=== PATIENT | female | born 1945 | race Caucasian/White ===

== ENCOUNTER 2017-03-31 09:52 | Emergency (ER) | payer MEDICARE, OTHER ==
[~2017-03-31] VITALS: Ht 154.9 cm; Wt 88.6 kg
[~2017-03-31 09:52] MED LIST: CALCIUM + D 5001 TAB PO; CARDI-OMEGA1000 MG PO; NO HOME MEDICATIONS; OXYCODONE5 M1 PO
[2017-03-31] MEDS ORDERED: DITROPAN XL10 M1 PO (10:10)
[2017-03-31 11:08] LABS: EOS # 0.1 (0.04-0.40); EOS % 2.9 % (1.0-5.0); HEMATOCRIT 37.7 % (37.0-47.0); HEMOGLOBIN 11.8 g/dL (12.5-16.0); MEAN CELL VOLUME 95 fl (78-100); MEAN CORPUSCULAR HEMOGLOBIN 30 pg (27-31); MEAN CORPUSCULAR HGB CONC 31 g/dL (33-37); MEAN PLATELET VOLUME 11.1 fl (7.4-10.4); MONO # 0.5 (0.20-0.80); NEU # 3.2 (1.40-6.50); PLATELET COUNT 185 K/mm3 (130-400); RED BLOOD COUNT 3.96 M/mm3 (4.10-5.30); RED CELL DISTRIBUTION WIDTH 14.6 % (11.5-14.5); WHITE BLOOD COUNT 4.8 K/mm3 (4.8-10.8)
[2017-03-31 11:17] LABS: BUN/CREATININE RATIO 18.7 (6.0-26.0); CALCIUM 8.5 mg/dL (8.4-10.2); POTASSIUM 3.9 mmol/L (3.6-5.0)
[2017-03-31] MEDS ORDERED: TESSALON PERLE100 M1 PO (11:53)
[2017-03-31 12:29] VITALS: BP 150/73
== END 2017-03-31 12:15 | disposition home or self-care (01) ==
LOC: ED 09:52
PROVIDERS: Family Medicine
DX: J10.1 Influenza due to other identified influenza virus with other respiratory manifestations (principal); N39.41 Urge incontinence

== ENCOUNTER → 2017-11-28 | Outpatient (CLI) | payer MEDICARE, OTHER ==
[~2017-11-28] MED LIST changes: +DITROPAN XL10 M1 PO; +TESSALON PERLE100 M1 PO
== END ==
LOC: RAD 09:05 → MAMMO 10:00
DX: M85.80 Other specified disorders of bone density and structure, unspecified site (principal); Z78.0 Asymptomatic menopausal state

== ENCOUNTER → 2017-11-28 | Outpatient (CLI) | payer MEDICARE, OTHER | LOC: MAMMO 09:03 | DX: Z12.31 Encounter for screening mammogram for malignant neoplasm of breast (principal) ==

== ENCOUNTER → 2018-11-11 | Day surgery (SDC) | payer MEDICARE | LOC: MSO 08:41 | DX: R19.7 Diarrhea, unspecified (principal); K59.00 Constipation, unspecified; K21.9 Gastro-esophageal reflux disease without esophagitis; E78.5 Hyperlipidemia, unspecified; N32.81 Overactive bladder; Z79.899 Other long term (current) drug therapy; Z88.0 Allergy status to penicillin | CPT/HCPCS: 00812; J2704; J7120 ==

== ENCOUNTER → 2020-02-10 | Outpatient (CLI) | payer MEDICARE | LOC: RAD 10:55 → MAMMO 11:30 | DX: Z13.820 Encounter for screening for osteoporosis (principal); M85.80 Other specified disorders of bone density and structure, unspecified site ==

== ENCOUNTER → 2020-02-10 | Outpatient (CLI) | payer MEDICARE | LOC: MAMMO 10:45 | DX: Z12.31 Encounter for screening mammogram for malignant neoplasm of breast (principal) ==

== ENCOUNTER 2020-10-07 10:18 | Emergency (ER) | payer MEDICARE ==
[2020-10-07] MEDS ORDERED: ATORVASTATIN CA10 MG PO (10:28)
[2020-10-07] MEDS ORDERED: ALENDRONATE SOD70 MG PO (10:28)
[2020-10-07] MEDS ORDERED: GOOD NEIGHBOR200 M1 PO (10:28)
[2020-10-07] MEDS ORDERED: ANTIVERT12.5 M1 PO (10:28)
[2020-10-07 11:51] LABS: URINE APPEARANCE CLEAR; URINE BILIRUBIN NEGATIVE (NEGATIVE); URINE BLOOD NEGATIVE (NEGATIVE); URINE COLOR YELLOW; URINE GLUCOSE NEGATIVE (NEGATIVE); URINE KETONE NEGATIVE (NEGATIVE); URINE LEUKOCYTE ESTERASE NEGATIVE (NEGATIVE); URINE NITRATE NEGATIVE (NEGATIVE); URINE PROTEIN(semi-quant) NEGATIVE (NEGATIVE); URINE UROBILINOGEN NORMAL (NORMAL); URINE WBC 0 /hpf (0-3)
[2020-10-07 13:46] VITALS: BP 176/81
== END 2020-10-07 13:43 | disposition home or self-care (01) ==
LOC: ED 10:18
PROVIDERS: Physician Assistant
DX: M54.41 Lumbago with sciatica, right side (principal); G89.29 Other chronic pain; Z79.1 Long term (current) use of non-steroidal anti-inflammatories (NSAID)
CPT/HCPCS: J1885

== ENCOUNTER → 2021-09-12 | Outpatient (CLI) | payer MEDICARE ==
[~2021-09-12] MED LIST changes: +ALENDRONATE SOD70 MG PO; +ANTIVERT12.5 M1 PO; +ATORVASTATIN CA10 MG PO; +GOOD NEIGHBOR200 M1 PO
== END ==
LOC: RAD 15:45
DX: Z74.09 Other reduced mobility (principal)
CPT/HCPCS: A9575

== ENCOUNTER 2021-10-10 10:00 | Outpatient (RCR) | payer MEDICARE | END 2021-10-26 | disposition home or self-care (01) | LOC: PT | DX: Z74.09 Other reduced mobility (principal) ==

== ENCOUNTER 2021-11-01 08:00 | Outpatient (RCR) | payer MEDICARE | END 2021-11-25 | disposition home or self-care (01) | LOC: PT | DX: R26.89 Other abnormalities of gait and mobility (principal); R42 Dizziness and giddiness ==

== ENCOUNTER 2021-11-28 13:30 | Outpatient (RCR) | payer MEDICARE | END 2021-12-26 | disposition home or self-care (01) | LOC: PT | DX: Z74.09 Other reduced mobility (principal) ==

== ENCOUNTER 2022-03-01 08:59 | Outpatient (RCR) | payer MEDICARE, OTHER | END 2022-03-28 14:43 | disposition home or self-care (01) | LOC: PT 08:59 | DX: R29.898 Other symptoms and signs involving the musculoskeletal system (principal) ==

== ENCOUNTER → 2022-04-04 | Outpatient (CLI) | payer MEDICARE, OTHER | LOC: RAD 09:55 | DX: G20 Parkinson's disease (principal); M54.50 Low back pain, unspecified; G89.29 Other chronic pain; R29.2 Abnormal reflex; R90.82 White matter disease, unspecified ==

== ENCOUNTER → 2022-04-11 | Outpatient (CLI) | payer MEDICARE, OTHER | LOC: RAD 09:30 | DX: M51.26 Other intervertebral disc displacement, lumbar region (principal); M50.221 Other cervical disc displacement at C4-C5 level; M48.02 Spinal stenosis, cervical region; M50.222 Other cervical disc displacement at C5-C6 level; M50.223 Other cervical disc displacement at C6-C7 level; M89.38 Hypertrophy of bone, other site; M47.816 Spondylosis without myelopathy or radiculopathy, lumbar region; M24.28 Disorder of ligament, vertebrae; G20 Parkinson's disease ==

== ENCOUNTER → 2023-01-22 | Outpatient (CLI) | payer MEDICARE, OTHER | LOC: MAMMO 07:00 | DX: N63.13 Unspecified lump in the right breast, lower outer quadrant (principal) ==